=== PATIENT | female | born 1935 | race Caucasian/White ===

== ENCOUNTER 2018-08-09 08:39 | Day surgery (SDC) | payer MEDICARE, BC, SELFPAY ==
[2018-08-09] VITALS (12 sets, daily range): BP systolic 81–146; BP diastolic 43–82; PULSE 57–80; RESP 14–20; TEMP 36.3–37.6; O2SAT 93–100; BMI 19.8
[2018-08-09] MEDS: SODIUM CHLORIDE 0.9% 1,000 ML 200 ML IV (10:06)
--- NOTE | 2018-08-09 10:56 | PM.PREOP ---
Pre-operative Note Interval Note History & Physical reviewed/Exam performed by Physician: Yes Changes to H&P: No ASA Class (for procedural sedation): II
[2018-08-09] MEDS: MIDAZOLAM 5 MG/5 ML VIAL IV (11:09)
[2018-08-09] MEDS: fentaNYL 250 MCG/5 ML INJ IV (11:11)
--- NOTE | 2018-08-09 11:26 | PM.OP.ENDO ---
Operative Date/Time/Diagnoses Date of procedure: 08/09/18 Procedure & Clinicians Study performed: Colonoscopy Moderate conscious sedation was administered by the endoscopy nurse and supervised by the endoscopist. The following parameters were monitored: Oxygen saturation, heart rate, blood pressure, and response to care. Sedation: 2.5 mg midazolam, 100 mcg fentanyl Indications: Change in bowel habits, constipation Procedure Notes Procedure in detail: Prior to the procedure, history and physical was performed, and patient medications and allergies were reviewed. Preprocedure nursing history and assessment was reviewed. Patient identification and proposed procedure were verified by the physician and nurse in the procedure room. The physical status of the patient was reassessed after the procedure. After informed consent was obtained including risks, benefits, and alternatives, the scope was passed under direct vision. Throughout the procedure, the patient's blood pressure, pulse, and oxygen saturations were monitored continuously. The slim colonoscope was introduced through the anus and advanced to the cecum as identified by the appendiceal orifice and ileocecal valve. The patient tolerated the procedure well. Bowel prep was deemed adequate to detect polyps greater than 5 mm. Perianal examination unremarkable. Digital rectal examination notable for weak sphincter tone. Retroflexion in the rectum was unrevealing The entire colon was tortuous. There was significant looping in the sigmoid colon. The colon was otherwise unremarkable Impression: Tortuous colon No specimens collected Sedation minutes: 23 Complications: other (No complications. EBL none) Plan for aftercare: Continue home medications Resume previous diet No recommendation for additional colonoscopies for screening purposes due to advanced age Patient has a contact number available for emergencies. The signs and symptoms of potential delayed complications were discussed with the patient. Return to normal activities tomorrow. Written discharge instructions were provided to the patient. Discharge home with escort
--- NOTE | 2018-08-09 12:09 | SUR.PHASEI ---
Pt's heart rhythm irregular, Dr. Cain notified, EKG ordered. RT notified.
--- NOTE | 2018-08-09 12:45 | SUR.PHASEII ---
Delay in discharge due to waiting on MD to view EKG. He did and authorized discharge.
--- NOTE | 2018-08-09 14:43 | SUR.PHASEII ---
Per MD request patient called and asked to have someone check red area on lower back, instructed to follow up with PCP if red area continues.
== END 2018-08-09 13:14 | disposition home or self-care (01) ==
PROVIDERS: PCP Physician Assistant Medical; Visit Provider Internal Medicine
PROC: 0DJD8ZZ Inspection of Lower Intestinal Tract, Via Natural or Artificial Opening Endoscopic (ICD-10-PCS; CPT 45378; principal; 2018-08-09 10:30)
DX: K56.2 Volvulus (principal); R19.4 Change in bowel habit; R63.0 Anorexia; R63.4 Abnormal weight loss; I10 Essential (primary) hypertension
CPT/HCPCS: 45378; 93005; 93010; J2250; J3010